=== PATIENT | female | born 1960 | race Caucasian/White ===

== ENCOUNTER 2024-04-11 17:11 | Emergency (ER) | payer BC, SELFPAY ==
[2024-04-11 17:18] VITALS: BP 198/116
--- NOTE | 2024-04-11 17:19 | ED.GENMED ---
ED Provider Triage
<Malik Everett PA-C - Last Filed: 04/11/24 17:21>
-
Patient seen by provider in Triage?: Seen in Triage
Attestation: A medical screening examination has been initiated by a qualified medical provider. Based on the assessment performed at this time, it has been determined that an emergent medical condition may exist and the patient has been informed
that further medical evaluation and possible additional diagnostic testing may be needed.
HPI: 63-year-old female presenting to the emergency department for evaluation of chest pain that started around 2 PM, mostly constant, nonradiating. History of hypertension hypercholesterolemia. No other associated symptoms. Denies any recent
travel, fevers or infectious symptoms or any other concerns. Labs including D-dimer and EKG ordered. 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 History of breast cancer as well.
GENERAL: Alert , in no apparent distress
EYE: No visual abnormalities.
NECK: Trachea midline
ENT: No visible abnormalities.
LUNGS: No acute respiratory distress
NEUROLOGICAL: Alert and oriented
SKIN: Skin intact. No visible changes.
MUSCULOSKELETAL: Moving extremities normally
PSYCH: Normal and appropriate interaction.
This is a medical evaluation conducted in person to initiate diagnostic evaluation and provide initial therapeutics. Please see further documentation by the treating clinician.
History of Present Illness
<Malik Everett PA-C - Last Filed: 04/11/24 17:21>
General
Chief Complaint: Cardiac Symptoms
Time Seen by Provider: 04/11/24 19:31
<Ashleigh Hanley DO - Last Filed: 04/11/24 21:20>
History of Present Illness
History of Present Illness:
63-year-old female with history of uncontrolled high blood pressure presenting to the emergency department for left-sided chest pain. Patient reports symptoms started around 2 PM this afternoon while she was at work. Denies any exertional
component. Reports that she has had chest pain in the past, however felt that this was more severe. Denies difficulty breathing. Pain is worse with deep inspiration or certain movements. Reports that she had a catheterization about 4 years ago
that was normal. Denies abdominal pain or GI symptoms. Denies fever or cough. Pain has been constant, nonradiating. Denies additional acute medical complaints.
Past History
<Malik Everett PA-C - Last Filed: 04/11/24 17:21>
Past History
ED Past Medical History: CVA, HTN, Hypercholesterolemia, Hypothyroidism and Other (Hyperlipidemia status post left partial nephrectomy, recent TIA versus CVA); Negative IDDM
ED Past Surgical History: Appendectomy, Gynecological, Urological and Other (Left nephrectomy )
Social History
Tobacco: Smoker (works at [employer])
Alcohol: None
Drug: None
Personal:
Living: with family
Employment: Employed
Family History
Family History: Hypertension
Phy Exam
<DO Helena Ruby Last Filed: 04/11/24 21:20>
Physical Exam
Physical Exam:
General: Well-appearing, no clinical signs of dehydration, nontoxic and in no acute distress
HEENT: protecting airway
Neck: appears supple
CV: Normal heart rate, regular rhythm
Resp: No accessory muscle use, no increased work of breathing, lungs clear to auscultation bilaterally
Abd: No distention
Extremities: No deformities, no swelling
Neuro: alert, no focal neurologic deficit
: deferred
Rectal: deferred
Psych: Normal affect
Skin: Intact
Scores
<DO Helena Ruby Last Filed: 04/11/24 21:20>
Heart Score for Chest Pain Patients
STEMI patient?: No
History: Slightly or Non-Suspicious
ECG: Normal
Age: >45 - <65 years
Risk Factors: 1 or 2 Risk Factors
Troponin: </= Normal Limit
Heart Score for Chest Pain Patients: 2
Heart Score Risk: 2.5% MACE over next 6 weeks
Course
<Malik Everett PA-C - Last Filed: 04/11/24 17:21>
Orders/Labs/Results
Orders:
Orders
04/11/24 17:12
Electrocardiogram (*1) Urgent
Reason for Study: Chest Pain
EKG- Treatment ONCE
04/11/24 17:32
Complete Blood Count/With Diff Urgent
Comprehensive Metabolic Panel Urgent
D-Dimer Urgent
Troponin I Urgent
04/11/24 20:04
Electrocardiogram (*1) Urgent
Reason for Study: Chest Pain
EKG- Treatment ONCE
Ketorolac [Toradol] 15 mg IM NOW STA
CR Chest - 2 Views Urgent
Comment:
Reason For Exam: CP
04/11/24 20:15
Troponin I Urgent
04/11/24 21:18
Oxycodone/Acetaminophen [Percocet 5/325] 1 tablet PO NOW STA
Abnormal Lab Results
04/11/24
17:32
RDW 14.8 H %
(11.5-14.5)
Abs Immat Gran (auto) 0.1 H 10^3/uL
(0-0.05)
Immature Gran % 0.8 H %
(0-0.5)
Chloride 97 L mmol/L
(98-107)
Carbon Dioxide 34 H mmol/L
(22-30)
BUN 25 H mg/dl
(7-17)
Glucose 132 H mg/dl
(70-99)
04/11/24 17:32
04/11/24 17:32
Vital Signs
Initial and Last Documented VS:
Initial Vital Signs
Temp Pulse Resp BP Pulse Ox
98.2 F 65 20 198/116 96
04/11/24 17:18 04/11/24 17:18 04/11/24 17:18 04/11/24 17:18 04/11/24 17:18
Last Documented Vital Signs
Temp Pulse Resp BP Pulse Ox
98.2 F 61 16 215/96 97
04/11/24 17:18 04/11/24 20:07 04/11/24 20:07 04/11/24 20:07 04/11/24 20:07
<Ashleigh Hanley, DO - Last Filed: 04/11/24 21:20>
Orders/Labs/Results
Orders:
Orders
04/11/24 17:12
Electrocardiogram (*1) Urgent
Reason for Study: Chest Pain
EKG- Treatment ONCE
04/11/24 17:32
Complete Blood Count/With Diff Urgent
Comprehensive Metabolic Panel Urgent
D-Dimer Urgent
Troponin I Urgent
04/11/24 20:04
Electrocardiogram (*1) Urgent
Reason for Study: Chest Pain
EKG- Treatment ONCE
Ketorolac [Toradol] 15 mg IM NOW STA
CR Chest - 2 Views Urgent
Comment:
Reason For Exam: CP
04/11/24 20:15
Troponin I Urgent
04/11/24 21:18
Oxycodone/Acetaminophen [Percocet 5/325] 1 tablet PO NOW STA
Abnormal Lab Results
04/11/24
17:32
RDW 14.8 H %
(11.5-14.5)
Abs Immat Gran (auto) 0.1 H 10^3/uL
(0-0.05)
Immature Gran % 0.8 H %
(0-0.5)
Chloride 97 L mmol/L
(98-107)
Carbon Dioxide 34 H mmol/L
(22-30)
BUN 25 H mg/dl
(7-17)
Glucose 132 H mg/dl
(70-99)
04/11/24 17:32
04/11/24 17:32
Vital Signs
Initial and Last Documented VS:
Initial Vital Signs
Temp Pulse Resp BP Pulse Ox
98.2 F 65 20 198/116 96
04/11/24 17:18 04/11/24 17:18 04/11/24 17:18 04/11/24 17:18 04/11/24 17:18
Last Documented Vital Signs
Temp Pulse Resp BP Pulse Ox
98.2 F 61 16 215/96 97
04/11/24 17:18 04/11/24 20:07 04/11/24 20:07 04/11/24 20:07 04/11/24 20:07
<Ashleigh Hanley, - Last Filed: 04/11/24 21:20>
MDM/Problems Addressed
MDM/Problems Addressed:
63-year-old female with history of uncontrolled hypertension presenting for left-sided chest pain. Vital signs on arrival are significant for high blood pressure.
On exam patient is resting comfortably, no acute distress or discomfort. EKG obtained on patient's arrival, nonischemic. Unremarkable cardiac and pulmonary exam. Patient had screening laboratory analysis prior to my assessment including troponin,
which is undetectable. In the setting of nonischemic EKG and objective troponin, lower suspicion for ACS. On review of EMR, patient had cardiac catheterization in 2019, noncritical coronary artery disease. Patient also had a D-dimer sent,
undetectable, without present concern for PE. Suspected musculoskeletal component to symptoms. Will try Toradol for pain. Patient's blood pressure is markedly elevated, however notes that this is typical for her. She is due for her blood
pressure medications, takes them at nighttime. Will send second troponin and chest x-ray.
21:20 - Chest x-ray without acute cardiopulmonary disease and second troponin is undetectable. At this time low risk for ACS. 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 Return precautions discussed and patient
verbalized understanding
<Ashleigh Hanley DO - Last Filed: 04/11/24 21:20>
*EKG
Interpreted by ED Provider?: Yes
EKG Intrepretation Date: 04/11/24
EKG Intrepretation Time: 20:20
Interpretation: normal
Comparison EKG: no changes (03/01/21)
Heart Rate: 61
Rate: normal
Rhythm: sinus
Dewart: normal axis
Interval: normal interval
QRS Pattern: normal QRS
Ischemia: non-specific ST changes
*Critical Care Note
Total Time (30-74mins, 75-104mins- exclusive of procedures): Not Applicable
ED Attending Note
<Malik Everett PA-C - Last Filed: 04/11/24 17:21>
-
Portions of this chart may have been created with voice recognition software.� Occasional wrong word or��sound alike� substitutions may have occurred due to the inherent limitations of voice recognition software.
Discharge Plan
Departure
Prescriptions:
No Action
isosorbide mononitrate 30 MG tablet extended release 24 hr
30 mg PO DAILY
levothyroxine 150 MCG tablet
150 mcg PO DAILY AT 0700
diclofenac potassium 50 MG tablet
50 mg PO QPM
hydrochlorothiazide 25 MG tablet
25 mg PO QPM
losartan [Cozaar] 100 MG tablet
100 mg PO QPM
ezetimibe 10 MG tablet
10 mg PO QPM
rosuvastatin 10 MG tablet
10 mg PO QPM
aspirin 81 MG tablet,chewable
81 mg PO QPM
cholecalciferol (vitamin D3) 1,000 UNITS tablet
1,000 units PO DAILY
Patient Comments:
2 tablets
[id number] K [Multi-Day Plus Minerals] 1 EACH tablet
1 ea PO DAILY
tramadol 100 MG capsule,ER biphase 24 hr 25-75
100 mg PO BID Qty: 30 0RF
Rx Instructions:
take with food
tramadol 100 MG tablet
100 mg PO DAILY Qty: 30 0RF
Referrals:
Angelika Gambino CRNP [Family Provider] -
Interventions
Interventions:
*Risk Screen - Suicide Last Done: 04/11/24 19:40
*General Assessment Last Done: 04/11/24 17:18
*Neglect/Abuse Screening Last Done: 04/11/24 19:40
*ED COVID-19 Vaccine History Last Done: 04/11/24 19:30
ED- Cardiac Assessment Last Done: 04/11/24 19:40
ED- Pulmonary Assessment Last Done: 04/11/24 19:40
Discharge Date and Time
Print Language: KOREAN
[2024-04-11 17:40] LABS: % Basophils 0.5 % (0-2); % Eosinophils 3.2 % (0-6); % Immature Granulocytes 0.8 % (0-0.5); % Lymphocytes 25.1 % (20.5-51.1); % Neutrophils 63.4 % (42.2-75.2); Absolute Eosinophils 0.3 10^3/uL (0-0.7); Absolute Immature Granulocytes 0.1 10^3/uL (0-0.05); Absolute Monocytes 0.6 10^3/uL (0.1-0.6); Hematocrit 42.4 % (37.0-47.0); Hemoglobin 14.2 g/dL (12.0-16.0); Mean Corp Hgb Conc. 33.5 g/dL (33.0-37.0); Mean Corpuscular Hgb 28.9 pg (27.0-31.0); Mean Corpuscular Volume 86.2 fL (81.0-99.0); Mean Platelet Volume 8.6 fL (7.4-10.4); Nucleated Red Blood Cells % 0 %; Platelet Count 248 10^3/uL (130-400); Red Blood Cell Count 4.92 10^6/uL (4.20-5.40); Red Cell Dist. Width 14.8 % (11.5-14.5); White Blood Cell Count 7.9 10^3/uL (4.8-10.8)
[2024-04-11 17:50] LABS: D-Dimer 0.34 ug/mlFEU (0.00-0.50)
[2024-04-11 17:58] LABS: ALT (SGPT) 19 U/L (0-35); AST (SGOT) 25 U/L (14-36); Albumin 4.4 g/dl (3.5-5.0); Alkaline Phosphatase 85 U/L (38-126); Blood Urea Nitrogen 25 mg/dl (7-17); Calcium 9.4 mg/dl (8.4-10.2); Carbon Dioxide 34 mmol/L (22-30); Chloride 97 mmol/L (98-107); Glucose 132 mg/dl (70-99); Potassium 3.6 mmol/L (3.5-5.1); Sodium 137 mmol/L (135-145); Total Bilirubin 0.4 mg/dl (0.2-1.3); Total Protein 7.1 g/dl (6.3-8.2); eGFR > 60.00
[2024-04-11 18:01] LABS: Troponin I < 0.012 ng/ml
[2024-04-11 20:07] VITALS: BP 215/96
[2024-04-11 20:47] LABS: Troponin I < 0.012 ng/ml
[2024-04-11 21:24] VITALS: BP 195/102
[2024-04-11] MEDS: PERCOCET 5/325 1 TABLET PO (21:28)
== END 2024-04-11 21:31 | disposition home or self-care (01) ==
LOC: EMR 17:11
PROVIDERS: Physician Assistant Medical; EMERGENCY PHYSICIAN Student in an Organized Health Care Education/Training Program; FAMILY PHYSICIAN Nurse Practitioner Family
DX: R07.89 Other chest pain (principal); I10 Essential (primary) hypertension; E78.00 Pure hypercholesterolemia, unspecified; E03.9 Hypothyroidism, unspecified; I25.10 Atherosclerotic heart disease of native coronary artery without angina pectoris; I25.2 Old myocardial infarction; Z86.73 Personal history of transient ischemic attack (TIA), and cerebral infarction without residual deficits; Z85.3 Personal history of malignant neoplasm of breast; F17.200 Nicotine dependence, unspecified, uncomplicated
CPT/HCPCS: 99285; 71046; 80053; 84484; 85025; 85379; 93005